=== PATIENT | male | born 1970 | race American Indian/Alaskan Native ===

== ENCOUNTER 2017-08-28 12:09 | Emergency (ER) | payer SELFPAY | END 2017-08-28 12:10 | disposition left against medical advice (07) | LOC: ED 12:09 | DX: R51 Headache (principal); Z53.21 Procedure and treatment not carried out due to patient leaving prior to being seen by health care provider ==

== ENCOUNTER 2021-07-18 06:49 | Emergency (ER) | payer SELFPAY ==
[2021-07-18 06:58] VITALS: BP 142/93
--- NOTE | 2021-07-18 08:21 | Emergency Department Report ---
ED ENT HPI - General Chief complaint: Dental/Oral Stated complaint: JAW PAIN Time Seen by Provider: 07/18/21 08:11 Source: patient Mode of arrival: Ambulatory Limitations: No Limitations - History of Present Illness Initial comments: 50-year-old -[place] male with no past medical history presents to the emergency room for 2-day history of right upper jaw pain and swelling. Patient state he has cracked his tooth and the pieces are removed but now he has a hold and he feels like symptom has gotten up in there. Patient states that he has tremendous pain swelling in his tender to touch. Patient states he does not have a primary dentist. He denies any drainage from the tooth. He states he has been taken ibuprofen last dose was last night denies any trauma MD complaint: tooth pain Onset/Timin -: days(s) - Related Data Previous Rx's Medication Instructions Recorded Last Taken Type Amoxicillin/K Clav Tab [Augmentin 1 tab PO Q12HR 10 Days #20 tab 07/18/21 Unknown Rx 875 mg] Naproxen [Naprosyn] 500 mg PO BID PRN #20 tablet 07/18/21 Unknown Rx Allergies Allergy/AdvReac Type Severity Reaction Status Date / Time No Known Allergies Allergy Verified 07/18/21 06:55 ED Dental HPI - General Chief complaint: Dental/Oral Stated complaint: JAW PAIN Time Seen by Provider: 07/18/21 08:11 Source: patient Mode of arrival: Ambulatory Limitations: No Limitations - Related Data Previous Rx's Medication Instructions Recorded Last Taken Type Amoxicillin/K Clav Tab [Augmentin 1 tab PO Q12HR 10 Days #20 tab 07/18/21 Unknown Rx 875 mg] Naproxen [Naprosyn] 500 mg PO BID PRN #20 tablet 07/18/21 Unknown Rx Allergies Allergy/AdvReac Type Severity Reaction Status Date / Time No Known Allergies Allergy Verified 07/18/21 06:55 ED Review of Systems ROS: Stated complaint: JAW PAIN Other details as noted in HPI Comment: All other systems reviewed and negative ED Past Medical Hx - Past Medical History Previous Medical History?: No - Medications Home Medications: Home Medications Medication Instructions Recorded Confirmed Last Taken Type Amoxicillin/K Clav Tab [Augmentin 1 tab PO Q12HR 10 Days #20 tab 07/18/21 Unknown Rx 875 mg] Naproxen [Naprosyn] 500 mg PO BID PRN #20 tablet 07/18/21 Unknown Rx ED Physical Exam - General Limitations: No Limitations General appearance: alert, in no apparent distress - Head Head exam: Present: atraumatic, normocephalic - Eye Eye exam: Present: normal appearance - Expanded ENT Exam Expanded Teeth exam: Present: fractured tooth #, dental tenderness #, gingival enlargement, other (Missing tooth #4) - Neck Neck exam: Present: normal inspection, full ROM - Respiratory Respiratory exam: Absent: respiratory distress, accessory muscle use - Cardiovascular Cardiovascular Exam: Present: regular rate, normal rhythm. Absent: systolic murmur, diastolic murmur, rubs, gallop - Extremities Exam Extremities exam: Present: normal inspection - Back Exam Back exam: Present: normal inspection - Neurological Exam Neurological exam: Present: alert, oriented X3 - Psychiatric Psychiatric exam: Present: normal affect, normal mood. Absent: depressed, agitated - Skin Skin exam: Present: warm, dry, intact, normal color. Absent: rash ED Course Vital Signs 07/18/21 06:56 Temperature 98.1 F Pulse Rate 80 Respiratory 20 Rate Blood Pressure 142/93 O2 Sat by Pulse 99 Oximetry ED Medical Decision Making - Medical Decision Making 50-year-old -[place] male with no past medical history presents to the emergency room for 2-day history of right upper jaw pain and swelling. Patient state he has cracked his tooth and the pieces are removed but now he has a hold and he feels like symptom has gotten up in there. Patient states that he has tremendous pain swelling in his tender to touch. Patient states he does not have a primary dentist. He denies any drainage from the tooth. He states he has been taken ibuprofen last dose was last night denies any trauma Patient be treated for dental abscess with Augmentin eight seventy-five p.o. twice daily as well as prescription for naproxen. Patient is to follow-up with a primary dentist. Critical care attestation.: If time is entered above; I have spent that time in minutes in the direct care of this critically ill patient, excluding procedure time. ED Disposition Clinical Impression: Dental abscess Disposition: HOME / SELF CARE / HOMELESS Is pt being admited?: No Does the pt Need Aspirin: No Condition: Stable Instructions: Dental Abscess, [id number] Additional Instructions: Complete antibiotics as prescribed. Pain medication as needed. Follow-up with a dentist. Prescriptions: Amoxicillin/K Clav Tab [Augmentin 875 mg] 1 tab PO Q12HR 10 Days #20 tab Naproxen [Naprosyn] 500 mg PO BID PRN #20 tablet PRN Reason: Pain , Severe (7-10) Referrals: PRIMARY CARE,MD [Primary Care Provider] - 3-5 Days [facility] [Outside] - 3-5 Days [facility] [Outside] - 3-5 Days Time of Disposition: 08:22
== END 2021-07-18 08:38 | disposition home or self-care (01) ==
LOC: ED 06:49
DX: K04.7 Periapical abscess without sinus (principal); Z79.899 Other long term (current) drug therapy
CPT/HCPCS: 99282

== ENCOUNTER 2021-08-14 15:17 | Emergency (ER) | payer OTHER ==
[2021-08-14 15:45] VITALS: BP 127/83
[2021-08-14] MEDS ORDERED: NEOMY 3.5 MG/BACIT 400 UNITS/POLY B 5000 UNITS/GM OINT PACKET TP ONE (16:58)
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
--- NOTE | 2021-08-14 17:29 | XRay Report ---
Left foot 3 views INDICATION: Injury FINDINGS: MTP joints and IP joints appear intact. Midfoot alignment appears normal. Calcaneus appears intact. IMPRESSION: No acute findings. Signer Name: Vaibhav Ruiz MD Signed: 08/14/2021 5:25 PM Workstation Name: [id number]
== END 2021-08-14 18:12 | disposition home or self-care (01) ==
LOC: EDBD → ED 15:17
DX: S90.32XA Contusion of left foot, initial encounter (principal); Z79.899 Other long term (current) drug therapy; W22.8XXA Striking against or struck by other objects, initial encounter; Y93.89 Activity, other specified; Y92.89 Other specified places as the place of occurrence of the external cause; Y99.8 Other external cause status
CPT/HCPCS: 73630; 99283; A6250